=== PATIENT | male | born 1995 | race Caucasian/White ===

== ENCOUNTER 2017-03-23 21:46 | Emergency (ER) | payer BC, OTHER ==
[2017-03-23 21:53] VITALS: BP 135/85; PULSE 76; O2SAT 99
[2017-03-23] MEDS ORDERED: MOTRIN 600 MG PO ONE (22:08)
--- NOTE | 2017-03-23 22:16 | ERPHSYRPT ---
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 He smashed his right index finger in the door of truck. Pain, bleeding, throbbing. Tetanus vaccine up to date. No other injury. Occurred: just prior to arrival Allergies/Adverse Reactions: No Known Drug Allergies Allergy (Unverified 03/23/17 22:18) Home Medications: No Reportable Medications [No Reported Medications] 03/23/17 [History] - Review of Systems Constitutional: No Symptoms Musculoskeletal: Injury (right index finger), No Back Pain, No Neck Pain Neurological: No Focal Weakness, No Parasthesia - Past Medical History Pertinent Past Medical History: No (healthy) - Nursing Vital Signs Nursing Vital Signs: Initial Vital Signs Temperature 98.2 F Temperature Source Oral Pulse Rate 76 Respiratory Rate 18 Blood Pressure [Right Arm] 135/85 Pain Intensity 6 - Physical Exam General Appearance: alert Eyes, Ears, Nose, Throat Exam: moist mucous membranes Neck Exam: supple Cardiovascular/Respiratory Exam: regular rate/rhythm Neuro/Tendon Exam: normal sensation, normal motor functions Mental Status Exam: alert, oriented x 3, cooperative Skin Exam: warm, dry SpO2 Interpretation: normal SpO2: 99 Oxygen Delivery: Room Air Comments: injured right index finger distally. Some dried blood but no laceration and no subungal hematoma. ROM intact. Tender distal right index finger. - Course Nursing assessment & vital signs reviewed: Yes - Radiology Exams right index finger X-ray Interpretation: Interpreted by me, Non-displaced Fracture (distal phalynx , edge) Ordered Tests: Active Orders 24 hr Category Date Time Status Cold Application STAT Care 03/23/17 22:08 Active Wound Care STAT Care 03/23/17 22:08 Active FINGER(S) Stat Exams 03/23/17 22:08 Taken [employer] DRUG SCREEN Stat Lab 03/23/17 22:20 Ordered Medication Summary Discontinued Medications Generic Name Dose Route Start Last Admin Trade Name Freq PRN Reason Stop Dose Admin Ibuprofen 600 mg 03/23/17 22:08 03/23/17 22:30 Motrin 600 Mg PO 03/23/17 22:09 600 mg STAT ONE Administration Ibuprofen Confirm 03/23/17 22:27 Motrin 600 Mg Administered 03/23/17 22:28 Dose 600 mg .ROUTE .STK-MED ONE - Progress Progress Note: 03/23/17 22:49 he will use ibuprofen. Discussed xray. Follow up advised. Counseled pt/family regarding: diagnosis, need for follow-up, rad results - Departure Time of Disposition: 22:50 Departure Disposition: Home Clinical Impression: Fracture of phalanx of right index finger Qualifiers: Encounter type: initial encounter Fracture type: closed Phalanx: distal Fracture alignment: nondisplaced Qualified Code(s): S62.660A - Nondisplaced fracture of distal phalanx of right index finger, initial encounter for closed fracture Condition: Stable Critical Care Time: No Referrals: DOCTOR,NO FAMILY [Primary Care Provider] - Instructions: Finger Fracture Additional Instructions: Ice, rest, elevate, splint. Ibuprofen as directed for pain. Follow up with worker comp or family doctor or [facility]. Off work tonite.
[2017-03-23] MEDS ORDERED: MOTRIN 600 MG ONE (22:27)
[2017-03-23] MEDS ORDERED: BACIGUENT PACKET TP ONE (22:48)
[2017-03-23] MEDS ORDERED: BACIGUENT PACKET ONE (22:58)
--- NOTE | 2017-03-24 08:51 | XRAY ---
Indication: Pain following crush injury. Comparison: None 3 views of the right second finger demonstrates nondisplaced tuft fracture with minimal soft tissue swelling. No other bony, articular, or soft tissue abnormalities.
== END 2017-03-23 23:04 | disposition home or self-care (01) ==
LOC: ED 21:46
DX: S62.660A Nondisplaced fracture of distal phalanx of right index finger, initial encounter for closed fracture (principal); W23.1XXA Caught, crushed, jammed, or pinched between stationary objects, initial encounter
CPT/HCPCS: 73140; 80307; 99283; 99284; A9270-GY